=== PATIENT | male | born 1945 | race Caucasian/White ===

== ENCOUNTER 2024-09-28 01:19 | Observation (INO) | payer OTHER ==
[2024-09-28 01:49] LABS: #Basophils 0.07 10x3/uL (0.0-0.2); #Eosinophils 0.45 10x3/uL (0.0-0.5); #Monocytes 1.01 10x3/uL (0.0-1.1); #Neutrophils 6.52 10x3/uL (1.5-8.4); %Basophils 0.6 % (0.0-2.0); %Eosinophils 4.1 % (0.0-6.0); %Lymphocytes 26.5 % (18.0-47.0); %Monocytes 9.2 % (0.0-10.0); %Neutrophils 59.2 % (40.0-75.0); Hematocrit 30.9 % (38.8-50.0); Hemoglobin 10.4 g/dL (13.5-17.5); Mean Corpuscular Hemoglobin 29.2 pg (27.0-33.0); Mean Corpuscular Volume 86.8 fL (81.2-95.1); Platelet Count 271 10x3/uL (150-450); Red Blood Cell (RBC) Count 3.56 10x6/uL (4.32-5.72); White Blood Cell (WBC) Count 11.01 10x3/uL (3.5-10.5)
[2024-09-28 01:58] LABS: INR-International Normal Ratio 0.9; PTT 25.1 sec (22.0-33.0); Prothrombin Time 10.1 sec (9.5-12.1)
[2024-09-28 02:01] LABS: ALT (SGPT) 16 U/L (Less than 45); AST (SGOT) 15 U/L (11-34); Albumin 3.3 g/dL (3.1-4.5); Alkaline Phosphatase 83 U/L (40-110); Anion Gap 11 mmol/L (10-20); BUN (Urea Nitrogen) 31 mg/dL (8.4-25.7); Bilirubin, Total 0.3 mg/dL (0.3-1.2); Calc. Creatinine Clearance 0 mL/min (70-130); Calcium 8.6 mg/dL (7.8-10.44); Carbon Dioxide 27 mmol/L (23-31); Chloride 106 mmol/L (98-107); Globulin 2.6 g/dL (2.4-3.5); Glucose 86 mg/dL (83-110); Potassium 4.4 mmol/L (3.5-5.1); Sodium 140 mmol/L (136-145)
[2024-09-28 02:04] LABS: Troponin I Less than 0.010 ng/mL (< 0.028)
[2024-09-28] MEDS ORDERED: Ondansetron PF 4 MG/2 ML Vial IVP PRN (04:19)
[2024-09-28] MEDS ORDERED: Glucagon 1 MG/ML KIT IM PRN (04:19)
[2024-09-28] MEDS ORDERED: Guaifenesin DM 100-10/5 ML UDCUP PO PRN (04:19)
[2024-09-28] MEDS ORDERED: Dextrose 50% Abboject 50 ML SYRINGE SLOW IVP PRN (04:19)
[2024-09-28] MEDS ORDERED: Calcium Carbonate 500 MG ChewTAB PO PRN (04:19)
[2024-09-28] MEDS ORDERED: Senokot S 8.6-50 MG TAB PO PRN (04:19)
[2024-09-28] MEDS ORDERED: Acetaminophen 325 MG TAB PO PRN (04:19)
[2024-09-28] MEDS ORDERED: Nitroglycerin 0.4 MG TAB (25 Tab Bottle) SL PRN (04:21)
[2024-09-28 05:07] VITALS: BMI 35.7
[2024-09-28 06:22] LABS: Troponin I Less than 0.010 ng/mL (< 0.028)
[2024-09-28] MEDS: Aspirin 81 mg Enteric Coated Tablet PO SCH (09:14)
[2024-09-28] MEDS: metFORMIN 500 MG TAB PO SCH (09:14)
[2024-09-28] MEDS: Metoprolol Succinate XL 25 MG ER.TAB PO SCH (09:14)
[2024-09-28] MEDS: Famotidine 20 MG TAB PO SCH (09:14)
[2024-09-28] MEDS: Cyanocobalamin (Vitamin B-12) 1,000 MCG TAB PO SCH (09:15)
[2024-09-28] MEDS: Ferrous Sulfate 325 MG TAB PO SCH (09:15)
[2024-09-28] MEDS: Lisinopril 10 MG TAB PO SCH (09:15)
[2024-09-28 10:05] LABS: Anion Gap 12 mmol/L (10-20); BUN (Urea Nitrogen) 29 mg/dL (8.4-25.7); Calc. Creatinine Clearance 81 mL/min (70-130); Calcium 8.4 mg/dL (7.8-10.44); Carbon Dioxide 25 mmol/L (23-31); Chloride 107 mmol/L (98-107); Glucose 197 mg/dL (83-110); Potassium 4.5 mmol/L (3.5-5.1); Sodium 139 mmol/L (136-145)
[2024-09-28 10:12] LABS: Troponin I Less than 0.010 ng/mL (< 0.028)
[2024-09-28 17:14] VITALS: BP 178/78; TEMP 98.6
[2024-09-28] MEDS ORDERED: Enoxaparin 40 MG (0.4 mL) SYRINGE SC SCH (21:00)
== END 2024-09-28 19:00 | disposition home or self-care (01) ==
LOC: EEVIPCON 01:19 → CSHERS 01:19 → CSHTELE 04:23
PROVIDERS: ADMIT Student in an Organized Health Care Education/Training Program; ATTEND Internal Medicine
PROC: B24BZZZ Ultrasonography of Heart with Aorta (ICD-10-PCS; principal; 2024-09-28)
DX: R07.89 Other chest pain (principal); R06.02 Shortness of breath; R79.89 Other specified abnormal findings of blood chemistry; I10 Essential (primary) hypertension; I25.10 Atherosclerotic heart disease of native coronary artery without angina pectoris; E11.9 Type 2 diabetes mellitus without complications; E78.5 Hyperlipidemia, unspecified; F32.A Depression, unspecified; D64.9 Anemia, unspecified; K21.9 Gastro-esophageal reflux disease without esophagitis; Z95.5 Presence of coronary angioplasty implant and graft; Z85.46 Personal history of malignant neoplasm of prostate; Z90.79 Acquired absence of other genital organ(s); Z79.82 Long term (current) use of aspirin; Z79.84 Long term (current) use of oral hypoglycemic drugs; Z79.899 Other long term (current) drug therapy
CPT/HCPCS: 36415; 36416; 71045; 80053; 83880; 84484; 85025; 85610; 85730; 93005; 93306; 94760; G0378; J1815